=== PATIENT | male | born 1980 | race African-American/Black ===

== ENCOUNTER 2017-10-05 09:05 | Emergency (ER) | payer MEDICARE, MEDICAID ==
[~2017-10-05] VITALS: Ht 177.8 cm; Wt 65.3 kg
[2017-10-05] MEDS ORDERED: CARBAMAZEPINE200 MG ORAL (09:24)
[2017-10-05] MEDS ORDERED: LAMICTAL25 MG ORAL (09:24)
[2017-10-05] MEDS ORDERED: DIPHENHYDRAMINE25 M1 ORAL (09:24)
[2017-10-05] MEDS ORDERED: ZYPREXA10 MG ORAL (09:24)
[2017-10-05] MEDS ORDERED: LAMICTAL100 MG ORAL (09:24)
[2017-10-05] MEDS ORDERED: ONCE DAILY1 EAC1 ORAL (09:24)
[2017-10-05] MEDS ORDERED: LORAZEPAM0.5 MG ORAL (09:24)
[2017-10-05] MEDS ORDERED: DEPAKOTE ER500 MG ORAL (09:24)
[2017-10-05] MEDS ORDERED: HIBICLENS118 ML PO (09:24)
[2017-10-05 09:25] VITALS: BP 112/87
[2017-10-05] MEDS ORDERED: Bacitracin Oint UD TOPIC ONE (10:30)
[2017-10-05 11:17] LABS: HEMATOCRIT 39.7 % (42.0-52.0); HEMOGLOBIN 13.2 G/DL (14.2-18.0); MEAN CORPUSCULAR VOLUME 90 FL (80-99); PLATELET COUNT 101 K/UL (150-450); RED BLOOD COUNT 4.39 M/UL (4.70-6.10); RED CELL DISTRIBUTION WIDTH 13.2 % (11.6-14.8)
--- NOTE | 2017-10-05 11:20 | Diagnostic Imaging Report ---
Indications: Pain, weakness, status post fall Technique: Spiral acquisitions obtained through the brain. Angled axial and coronal 5 x 5 mm slices were reconstructed. Total dose length product 1464.06 mGycm. CTDI vol(s) 70.38 mGy. Dose reduction achieved using automated exposure control Comparison: None. 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 Nonetheless, suspect that the tip is in the posterior aspect of the right lateral ventricular body. No acute intracranial hemorrhage or edema. No mass effect nor midline shift. 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 There is also considerable meningeal ossification. Normal garza-white differentiation. As mentioned earlier, unusual configuration of the ventricles, with collapse of the lateral and third ventricles and congenital anomalies, particularly posteriorly. No acute calvarial fracture. There is minimal disease within the sphenoid sinus on the left. Impression: Negative for acute intracranial bleed or mass effect Ventriculoperitoneal shunt in place. 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 Correlate with clinical history Marked calvarial hyperostosis Minimal sinus disease The CT scanner at [facility] is accredited by the [employer] and the scans are performed using protocols designed to limit radiation exposure to as low as reasonably achievable to attain images of sufficient resolution adequate for diagnostic evaluation.
[2017-10-05 11:23] LABS: APPEARANCE,URINE CLOUDY; BILIRUBIN, URINE NEGATIVE (NEGATIVE); COLOR,URINE PALE YELLOW; GLUCOSE, URINE (UA) NEGATIVE (NEGATIVE); KETONES,URINE 1+ (NEGATIVE); LEUKOCYTE ESTERASE ,URINE 3+ (NEGATIVE); NITRITE,URINE POSITIVE (NEGATIVE); PH,URINE 9 (4.5-8.0); PROTEIN,URINE 2+ (NEGATIVE); UROBILINOGEN,URINE NORMAL MG/DL (0.0-1.0)
[2017-10-05 11:33] LABS: ANION GAP 9 mmol/L (5-15); BLOOD UREA NITROGEN 14 mg/dL (7-18); CALCIUM 8.6 MG/DL (8.5-10.1); CARBON DIOXIDE 26 MMOL/L (21-32); CHLORIDE 102 MMOL/L (98-107); CREATININE 0.9 MG/DL (0.55-1.30); SODIUM 137 MMOL/L (136-145)
[2017-10-05 11:40] LABS: ALANINE AMINOTRANSFERASE 23 U/L (12-78); ALBUMIN 2.8 G/DL (3.4-5.0); ALBUMIN/GLOBULIN RATIO 0.7 (1.0-2.7); ALKALINE PHOSPHATASE 58 U/L (46-116); ASPARTATE AMINO TRANSFERASE 20 U/L (15-37); BILIRUBIN,TOTAL 0.3 MG/DL (0.2-1.0); CREATINE KINASE 89 U/L (26-308)
[2017-10-05] MEDS ORDERED: cefTRIAXone 1 GM in NS 55 ML IVPB ONE (11:45)
[2017-10-05 11:56] LABS: INR 1.1 (0.9-1.1)
--- NOTE | 2017-10-05 11:57 | Diagnostic Imaging Report ---
Indication: Shortness of breath Technique: One view of the chest Comparison: To 05/11/2017 Findings: Less optimal inspiration currently. Ventriculoperitoneal shunt tubing overlies left chest. No definite acute infiltrates, effusions, or congestion. Upper limits of normal heart size. Impression: No definite acute process
[2017-10-05 11:59] VITALS: BP 121/76
--- NOTE | 2017-10-05 14:20 | Emergency Room Report ---
History of Present Illness General Chief Complaint: General Complaint Source: Patient, EMS, Caregiver Present Illness HPI The patient is brought in after unwitnessed fall this morning. The patient was in the bathroom. He his head. The staff cannot be certain that the patient did not have a seizure. The patient wasn't postictal and some other suspicion is low. The last time the patient had a seizure was 4-5 years ago. They claim that the patient is compliant with medication. The staff stated he's been weak for a few days. After the head injury he had greater weakness. The patient claims he remembers falling. There is some developmental delay. The patient has status post ventricular peritoneal shunt. I spent a long time since the WATER/WASTEWATER PROJECT ENGINEER shunt was evaluated. They're uncertain about whether it is functioning properly. Patient denies most symptoms at this time. He states he doesn't have significant pain. Allergies: Coded Allergies: No Known Allergies (Unverified , 10/05/17) Patient History Limited by: medical condition Past Medical History: see triage record PSxH Narrative WATER/WASTEWATER PROJECT ENGINEER shunt Social History: Denies: smoking, alcohol use, drug use Social History Narrative assisted living Reviewed Nursing Documentation: PMH: Agreed; PSxH: Agreed Nursing Documentation-PMH Past Medical History: No History, Except For Hx Seizures: Yes Review of Systems All Other Systems: limited - Veracity questioned Physical Exam Vital Signs Date Time Temp Pulse Resp B/P (MAP) Pulse Ox O2 Delivery O2 Flow Rate FiO2 10/05/17 09:15 99.5 114 18 102/65 98 Room Air 99.5 Sp02 EP Interpretation: reviewed, normal General Appearance: well appearing, no apparent distress, alert, thin, Chronically Ill Head: normocephalic, other - Hematoma right forehead Eyes: bilateral eye normal inspection, bilateral eye PERRL, bilateral eye EOMI ENT: moist mucus membranes - No lingual trauma Neck: full range of motion, supple, no bony tend Respiratory: chest non-tender, lungs clear, normal breath sounds Cardiovascular #1: regular rate, rhythm Cardiovascular #2: 2+ radial (R) Gastrointestinal: normal inspection, normal bowel sounds, non tender, no mass, non-distended Musculoskeletal: back normal, gait/station normal, normal range of motion Neurologic: alert, motor strength/tone normal, no Babinski, other - some ataxia and inaccurate finger to nose, oriented - X1 Psychiatric: mood/affect normal Reflexes: 3+ knee (R), 3+ knee (L) Skin: warm/dry, abrasions - forehead with small hematoma Medical Decision Making Diagnostic Impression: Primary Impression: Head injury Qualified Codes: S09.90XA - Unspecified injury of head, initial encounter Additional Impressions: Weakness S/P WATER/WASTEWATER PROJECT ENGINEER shunt UTI (urinary tract infection) Qualified Codes: N39.0 - Urinary tract infection, site not specified ER Course Patient presents with weakness and a fall was unobserved with evidence of head trauma. Differential includes fracture, subdural, intracranial bleed, electrolyte abnormality, unwitnessed seizure, occult infection amongst others. The patient will be evaluated with CT, EKG chest x-ray and labs. The patient will be treated with IV hydration and also a local wound care. CT head is without bleed and no evidence of hydrocephalus. EKG is tachycardia without acute injury. Chest x-ray no infiltrates and no evidence of aspiration. Labs significant for elevated white count and pyuria. Antibodies are begun for the urinary tract infection. The patient is still unsteady on his feet. The patient acutely distended up and urinate. He was also incontinent of stool at that time there was no loss of consciousness here. According to the glove stitcher says is extremely unusual for the patient to have incontinence. The patient was discussed with Dr. Pool. I felt the patient needed to have repeated neurologic evaluation of possible evaluation of the ventriculoperitoneal shunt. He agreed to transfer the patient to [facility]. It's in the patient's best interest to go there as there is no surgery if necessary. Is not at baseline at this time. Carbamazepine is therapeutic. This makes seizure less likely. Laboratory Tests Test 10/05/17 10:45 White Blood Count 18.0 K/UL (4.8-10.8) H Red Blood Count 4.39 M/UL (4.70-6.10) L Hemoglobin 13.2 G/DL (14.2-18.0) L Hematocrit 39.7 % (42.0-52.0) L Mean Corpuscular Volume 90 FL (80-99) Mean Corpuscular Hemoglobin 30.1 PG (27.0-31.0) Mean Corpuscular Hemoglobin Concent 33.3 G/DL (32.0-36.0) Red Cell Distribution Width 13.2 % (11.6-14.8) Platelet Count 101 K/UL (150-450) L Mean Platelet Volume 9.5 FL (6.5-10.1) Neutrophils (%) (Auto) % (45.0-75.0) Lymphocytes (%) (Auto) % (20.0-45.0) Monocytes (%) (Auto) % (1.0-10.0) Eosinophils (%) (Auto) % (0.0-3.0) Basophils (%) (Auto) % (0.0-2.0) Differential Total Cells Counted 100 Neutrophils % (Manual) 74 % (45-75) Lymphocytes % (Manual) 5 % (20-45) L Monocytes % (Manual) 16 % (1-10) H Eosinophils % (Manual) 0 % (0-3) Basophils % (Manual) 1 % (0-2) Band Neutrophils 4 % (0-8) Platelet Estimate Decreased L Platelet Morphology Normal Red Blood Cell Morphology Normal Prothrombin Time 10.7 SEC (9.30-11.50) Prothrombin Time INR 1.1 (0.9-1.1) PTT 28 SEC (23-33) Urine Color Pale yellow Urine Appearance Cloudy Urine pH 9 (4.5-8.0) Urine Specific Ashley 1.010 (1.005-1.035) Urine Protein 2+ (NEGATIVE) H Urine Glucose (UA) Negative (NEGATIVE) Urine Ketones 1+ (NEGATIVE) H Urine Occult Blood 3+ (NEGATIVE) H Urine Nitrite Positive (NEGATIVE) H Urine Bilirubin Negative (NEGATIVE) Urine Urobilinogen Normal MG/DL (0.0-1.0) Urine Leukocyte Esterase 3+ (NEGATIVE) H Urine RBC 2-4 /HPF (0 - 0) H Urine WBC 5-10 /HPF (0 - 0) H Urine Squamous Epithelial Cells Few /LPF (NONE/OCC) Urine Bacteria Many /HPF (NONE) H Sodium Level 137 MMOL/L (136-145) Potassium Level 4.0 MMOL/L (3.5-5.1) Chloride Level 102 MMOL/L (98-107) Carbon Dioxide Level 26 MMOL/L (21-32) Anion Gap 9 mmol/L (5-15) Blood Urea Nitrogen 14 mg/dL (7-18) Creatinine 0.9 MG/DL (0.55-1.30) Estimate Glomerular Filtration Rate > 60 mL/min (>60) Glucose Level 94 MG/DL (74-106) Lactic Acid Level 1.80 mmol/L (0.66-2.22) Calcium Level 8.6 MG/DL (8.5-10.1) Total Bilirubin 0.3 MG/DL (0.2-1.0) Aspartate Amino Transferase (AST) 20 U/L (15-37) Alanine Aminotransferase (ALT) 23 U/L (12-78) Alkaline Phosphatase 58 U/L (46-116) Total Creatine Kinase 89 U/L (26-308) Troponin I 0.000 ng/mL (0.000-0.056) Pro-B-Type Natriuretic Peptide 538 pg/mL (0-125) H Total Protein 7.1 G/DL (6.4-8.2) Albumin 2.8 G/DL (3.4-5.0) L Globulin 4.3 g/dL Albumin/Globulin Ratio 0.7 (1.0-2.7) L Carbamazepine (Tegretol) Level 10.3 ug/mL (4.0-12.0) EKG Diagnostic Results Rate: tachycardiac ST Segments: no acute changes Rhythm Strip Diag. Results EP Interpretation: yes Rhythm: no PVC's, no ectopy, other - ST Chest X-Ray Diagnostic Results Chest X-Ray Diagnostic Results : Chest X-Ray Ordered: Yes # of Views/Limited/Complete: 1 View Indication: Other Interpretation: no consolidation, no effusion, no pneumothorax Impression: No acute disease Electronically Signed by: Electronically signed by Truong Marinelli MD Status: improved Disposition: XFER [facility] HOSP Condition: Serious - But stable for transfer [facility]: [facility],REFERR[facility] (PCP) Truong Marinelli M.D. October 05, 2017 14:20
[2017-10-05 14:43] VITALS: BP 134/82
[2017-10-05 17:00] VITALS: BP 125/76
[2017-10-05 18:53] VITALS: BP 115/75
[2017-10-05 19:20] VITALS: BP 115/75
--- NOTE | 2017-10-07 12:47 | Cardiology Report ---
APPROVED REPORT EKG Measurement Heart [id number] Sinus tachycardia Possible Left atrial enlargement Nonspecific T wave abnormality Abnormal ECG
== END 2017-10-05 19:20 | disposition short-term general hospital (02) ==
LOC: EMR 09:38
DX: S00.83XA Contusion of other part of head, initial encounter (principal); W19.XXXA Unspecified fall, initial encounter; Y92.002 Bathroom of unspecified non-institutional (private) residence as the place of occurrence of the external cause; N39.0 Urinary tract infection, site not specified; R53.1 Weakness; Z98.2 Presence of cerebrospinal fluid drainage device
CPT/HCPCS: 36415; 70450; 71045; 80053; 80156; 81003; 82550; 83605; 83880; 84484; 85007; 85025; 85610; 85730; 87086; 87181; 93005; 96360; 96361; 96374; 99285; J0696